=== PATIENT | male | born 1995 | race African-American/Black ===

== ENCOUNTER 2020-11-28 09:52 | Emergency (ER) | payer OTHER ==
[~2020-11-28] VITALS: Ht 193 cm; Wt 74.5 kg
[2020-11-28 13:02] LABS: BASO % 0.8 % (0.0-1.0); EOS # 0.1 10^3/uL (0.0-0.5); EOS % 2.3 % (0.0-3.0); HEMATOCRIT 42.7 % (42.0-52.0); HEMOGLOBIN 14.6 g/dl (13.5-17.5); LYMPH # 2.1 10^3/uL (1.5-5.0); LYMPH % 39.3 % (24.0-44.0); MEAN CORPUSCULAR HEMOGLOBIN 31.9 pg (27.0-33.0); MEAN CORPUSCULAR HGB CONC 34.2 g/dl (32.0-36.5); MEAN CORPUSCULAR VOLUME 93.2 fl (80.0-96.0); MONO # 0.4 10^3/uL (0.0-0.8); MONO % 7.6 % (2.0-8.0); NEUTROPHILS # 2.6 10^3/uL (1.5-8.5); NEUTROPHILS % 49.8 % (36.0-66.0); PLATELET COUNT, AUTOMATED 240 10^3/uL (150-450); RED BLOOD COUNT 4.58 10^6/uL (4.30-6.10); WHITE BLOOD COUNT 5.3 10^3/uL (4.0-10.0)
--- NOTE | 2020-11-28 13:02 | REP ---
INDICATION: right flank pain. COMPARISON: None. TECHNIQUE: Real-time sonographic evaluation of the kidneys is performed. FINDINGS: Renal cortical echogenicity pattern is normal bilaterally and contours are smooth. There is no evidence of hydronephrosis, cyst, mass, or calculus in either kidney. The right kidney measures 10.2 x 5.0 x 3.9 cm. Left renal dimensions are 10.0 x 4.9 x 4.5 cm. The urinary bladder is not well distended and not well evaluated. Ureteral jets could not be visualized with Doppler color evaluation. IMPRESSION: Negative renal ultrasound. <Electronically signed by Flavio Olvera > 11/28/20 [id number]
[2020-11-28 13:31] LABS: ALBUMIN 4.3 GM/DL (3.2-5.2); ALT/SGPT 28 U/L (12-78); BILIRUBIN,DIRECT 0.2 MG/DL (0.0-0.2); BILIRUBIN,TOTAL 0.8 MG/DL (0.2-1.0); BLOOD UREA NITROGEN 12 MG/DL (7-18); CALCIUM LEVEL 9.3 MG/DL (8.5-10.1); CARBON DIOXIDE LEVEL 32 MEQ/L (21-32); CHLORIDE LEVEL 104 MEQ/L (98-107); CREATININE FOR GFR 1.08 MG/DL (0.70-1.30); GLOMERULAR FILTRATION RATE > 60.0 (>60); GLUCOSE, FASTING 88 MG/DL (70-100); LIPASE 60 U/L (73-393); POTASSIUM SERUM 4.4 MEQ/L (3.5-5.1); SODIUM LEVEL 139 MEQ/L (136-145); TOTAL PROTEIN 7.9 GM/DL (6.4-8.2)
[2020-11-28] MEDS ORDERED: NAPR-837 PO (13:45)
[2020-11-28] MEDS ORDERED: CYCL-707 PO (13:45)
[2020-11-28 13:59] VITALS: BP 130/72
== END 2020-11-28 14:05 | disposition home or self-care (01) ==
LOC: M ED 09:52
DX: S39.012A Strain of muscle, fascia and tendon of lower back, initial encounter (principal); X50.9XXA Other and unspecified overexertion or strenuous movements or postures, initial encounter; R10.9 Unspecified abdominal pain; Y92.9 Unspecified place or not applicable; Y93.9 Activity, unspecified; Y99.9 Unspecified external cause status; Z79.899 Other long term (current) drug therapy

== ENCOUNTER 2021-01-22 21:14 | Emergency (ER) | payer OTHER ==
[~2021-01-22] VITALS: Ht 190.5 cm; Wt 73.0 kg
[~2021-01-22 21:14] MED LIST: CYCL-707 PO; NAPR-837 PO
--- OUTSIDE RECORDS SUMMARY | 2021-01-22 21:20 | CCD ---
Author [facility] Address Unknown Phone Unavailable Support Name Relationship Address Phone [facility] Next Of Kin [address] [place] [address] Unavailable Re-disclosure Warning The records that you are about to access may contain information from federally-assisted alcohol or drug abuse programs. If such information is present, then the following federally mandated warning applies: This information has been disclosed to you from records protected by federal confidentiality rules (42 CFR part 2). The federal rules prohibit you from making any further disclosure of this information unless further disclosure is expressly permitted by the written consent of the person to whom it pertains or as otherwise permitted by 42 CFR part 2. A general authorization for the release of medical or other information is NOT sufficient for this purpose. The Federal rules restrict any use of the information to criminally investigate or prosecute any alcohol or drug abuse patient.The records that you are about to access may contain highly sensitive health information, the redisclosure of which is protected by Article 27-F of the [facility] Public Health law. If you continue you may have access to information: Regarding HIV / AIDS; Provided by facilities licensed or operated by the [facility] Office of Mental Health; or Provided by the [facility] Office for People With Developmental Disabilities. If such information is present, then the following [facility] mandated warning applies: This information has been disclosed to you from confidential records which are protected by state law. State law prohibits you from making any further disclosure of this information without the specific written consent of the person to whom it pertains, or as otherwise permitted by law. Any unauthorized further disclosure in violation of state law may result in a fine or [place] [facility] sentence or both. A general authorization for the release of medical or other information is NOT sufficient authorization for further disc losure. Medications No Information Insurance Providers Payer name Policy type / Coverage type Policy ID Covered alliance party ID Covered alliance party's relationship to llanes Policy [employer] Plan [facility] [employer] [id number] Problems, Conditions, and Diagnoses No Information Surgeries/Procedures No Information Results No Information Social History No Information
--- OUTSIDE RECORDS SUMMARY | 2021-01-23 00:38 | CCD ---
Author Author [facility] Address Unknown Phone Unavailable Support Name Relationship Address Phone [facility] Next Of Kin [address] [place] [address] Unavailable Re-disclosure Warning The records that you [...] is protected by Article 27-F of the [facility] Public Health law. If you continue you may have access to information: Regarding HIV / AIDS; Provided by facilities licensed or operated by the [facility] Office of Mental Health; or Provided by the [facility] Office for People With Developmental Disabilities. If such information is present, then the following [facility] mandated warning applies: This information has been [...] law may result in a fine or [facility]ci sentence or both. A general authorization for the release of medical or other information is NOT sufficient authorization for further disc losure. Medications No Information Insurance Providers Payer name Policy type / Coverage type Policy ID Covered alliance party ID Covered alliance party's relationship to llanes Policy [employer] Plan [facility] [employer] [id number] Problems, Conditions, and Diagnoses No Information Surgeries/Procedures No Information Results No Information Social History No Information
[2021-01-23] MEDS ORDERED: SKEL800T97 PO (02:26)
[2021-01-23] MEDS ORDERED: METAXALONE 800 MG TABLET PO ONE (02:30)
[2021-01-23] MEDS ORDERED: IBUPROFEN 600MG TAB PO ONE (02:30)
[2021-01-23 02:50] VITALS: BP 127/75
== END 2021-01-23 02:52 | disposition home or self-care (01) ==
LOC: M ED 21:14
DX: S39.012A Strain of muscle, fascia and tendon of lower back, initial encounter (principal); Y92.9 Unspecified place or not applicable; Y93.9 Activity, unspecified; Y99.9 Unspecified external cause status

== ENCOUNTER 2021-02-13 18:30 | Emergency (ER) | payer OTHER ==
[~2021-02-13] VITALS: Ht 193 cm; Wt 74.5 kg
[~2021-02-13 18:30] MED LIST changes: +SKEL800T97 PO
[2021-02-13 18:31] VITALS: BP 130/60
[2021-02-13] MEDS ORDERED: cefTRIAXone 500MG VIAL (J0696 PER 250MG) IM ONE (20:30)
[2021-02-13] MEDS ORDERED: LIDOCAINE 1% SDV 5ML VIAL DILUENT ONE (20:30)
[2021-02-13] MEDS ORDERED: DOXY-443 PO (20:35)
[2021-02-13 20:59] LABS: GC DNA AMPLIFICATION NEGATIVE (NEGATIVE)
== END 2021-02-13 21:08 | disposition home or self-care (01) ==
LOC: M ED 18:30
DX: N34.1 Nonspecific urethritis (principal)
CPT/HCPCS: 81001; 87491; 87591; 87661; 96372; 99282; J0696

== ENCOUNTER 2021-03-17 12:18 | Emergency (ER) | payer OTHER ==
[~2021-03-17] VITALS: Ht 193 cm; Wt 79.5 kg
[2021-03-17 12:18] VITALS: BP 123/68
[~2021-03-17 12:18] MED LIST changes: +DOXY-443 PO
[2021-03-17 14:11] LABS: GC DNA AMPLIFICATION NEGATIVE (NEGATIVE)
[2021-03-18 11:04] LABS: HEPATITIS B SURFACE ANTIBODY POSITIVE (POSITIVE); HEPATITIS B SURFACE ANTIGEN NEGATIVE (NEGATIVE); HEPATITIS C VIRUS ABY INDEX 0.1 INDEX (<0.8); HIV 1&2 SCREEN CENTAUR NEGATIVE (NEGATIVE)
== END 2021-03-17 14:58 | disposition home or self-care (01) ==
LOC: M ED 12:18
DX: R35.0 Frequency of micturition (principal)

== ENCOUNTER 2022-04-24 15:18 | Emergency (ER) | payer OTHER ==
[~2022-04-24] VITALS: Ht 193 cm; Wt 77.3 kg
[2022-04-24] MEDS ORDERED: LIDOCAINE 1% SDV 5ML VIAL DILUENT ONE (16:00)
[2022-04-24] MEDS ORDERED: DOXYCYCLINE HYCLATE 100MG TABLET PO ONE (16:00)
[2022-04-24] MEDS ORDERED: cefTRIAXone 500MG VIAL IM ONE (16:00)
[2022-04-24 16:24] VITALS: BP 120/76
[2022-04-24 17:01] LABS: HEPATITIS B SURFACE ANTIBODY POSITIVE (POSITIVE)
[2022-04-24 17:13] LABS: HEPATITIS B SURFACE ANTIGEN NEGATIVE (NEGATIVE)
[2022-04-24 17:18] LABS: GC DNA AMPLIFICATION NEGATIVE (NEGATIVE)
[2022-04-24 17:26] LABS: HIV 1&2 SCREEN CENTAUR NEGATIVE (NEGATIVE)
== END 2022-04-24 16:38 | disposition home or self-care (01) ==
LOC: M ED 15:18
DX: Z20.2 Contact with and (suspected) exposure to infections with a predominantly sexual mode of transmission (principal); A74.9 Chlamydial infection, unspecified
CPT/HCPCS: 86706; 86780; 86803; 87340; 87389; 87661; 87810; 87850; 96372; 99283; J0696

== ENCOUNTER 2022-05-03 18:02 | Emergency (ER) | payer OTHER ==
[~2022-05-03] VITALS: Ht 193 cm; Wt 72.6 kg
[2022-05-03] MEDS ORDERED: ACETAMINOPHEN 500 MG TAB PO ONE (19:35)
[2022-05-03 20:04] LABS: GC DNA AMPLIFICATION POSITIVE (NEGATIVE)
[2022-05-03 20:30] LABS: MONO REFLEX EBV COMP NEGATIVE (NEGATIVE)
[2022-05-03] MEDS ORDERED: cefTRIAXone 500MG VIAL IM ONE (21:10)
[2022-05-03] MEDS ORDERED: LIDOCAINE 1% SDV 5ML VIAL DILUENT ONE (21:10)
[2022-05-03] MEDS ORDERED: PENICILLIN V POTASSIUM 500 MG TAB PO ONE (21:10)
[2022-05-03] MEDS ORDERED: PENI500T PO (21:14)
[2022-05-03 21:16] VITALS: BP 117/70
[2022-05-03] MEDS ORDERED: BENZ1LOZ9 PO (21:17)
[2022-05-06 14:09] LABS: EBV AB TO NUCLEAR ANTIGEN >600.0 U/mL (0.0-17.9); EBV VIRAL CAPSID AG IgM <36.0 U/mL (0.0-35.9)
== END 2022-05-03 21:25 | disposition home or self-care (01) ==
LOC: M ED 18:02
DX: A54.9 Gonococcal infection, unspecified (principal); J03.90 Acute tonsillitis, unspecified; J02.9 Acute pharyngitis, unspecified
CPT/HCPCS: 81001; 86308; 86664; 86665; 87086; 87428; 87661; 87810; 87850; 87880; 96372; 99283; J0696

== ENCOUNTER 2023-04-01 06:00 | Day surgery (SDC) | payer OTHER ==
[~2023-04-01] VITALS: Ht 193 cm; Wt 71.9 kg
[~2023-04-01 06:00] MED LIST changes: +BENZ1LOZ9 PO; +CELE0.09 PO; +GABA-282 PO; +PENI500T PO; +ceFAZolin SOD 2 GM in IV 1 EA IV ONE
[2023-04-01] MEDS ORDERED: LR 1,000 ML IV SCH (06:40)
[2023-04-01] MEDS ORDERED: LIDOCAINE 2% 100MG/5ML SDV (FOR ANES.) As Ordered ONE (07:07)
[2023-04-01] MEDS ORDERED: propofoL 200 MG/20 ML VIAL As Ordered ONE (07:07)
[2023-04-01] MEDS ORDERED: ACETAMINOPHEN 1000MG 100ML IV BAG As Ordered ONE (07:08)
[2023-04-01] MEDS ORDERED: MIDAZOLAM INJ 2MG/2ML VIAL As Ordered ONE (07:08)
[2023-04-01] MEDS ORDERED: ONDANSETRON 4MG 2ML VIAL As Ordered ONE (07:08)
[2023-04-01] MEDS ORDERED: KETOROLAC 60MG 2ML VIAL As Ordered ONE (07:08)
[2023-04-01] MEDS ORDERED: fentaNYL 100 MCG/2 ML INJECTION As Ordered ONE (07:09)
[2023-04-01] MEDS ORDERED: dexmedeTOMIDine (4MCG/ML)200MCG/50ML BTL (PRECEDEX) As Ordered ONE (07:13)
[2023-04-01] MEDS ORDERED: METOCLOPRAMIDE INJ 10MG/2ML VIAL IV PRN (09:25)
[2023-04-01] MEDS ORDERED: fentaNYL 100 MCG/2 ML INJECTION IV PRN (09:25)
[2023-04-01] MEDS ORDERED: oxyCODONE 5MG TAB PO PRN (09:25)
[2023-04-01] MEDS ORDERED: ONDANSETRON 4MG 2ML VIAL IV PRN (09:25)
[2023-04-01 10:40] VITALS: BP 121/80; TEMP 98.8; O2SAT 100
== END 2023-04-01 10:49 | disposition home or self-care (01) ==
LOC: M SDC 06:00
PROVIDERS: ATTEND Student in an Organized Health Care Education/Training Program
DX: S63.011D Subluxation of distal radioulnar joint of right wrist, subsequent encounter (principal); X58.XXXD Exposure to other specified factors, subsequent encounter; M65.831 Other synovitis and tenosynovitis, right forearm
CPT/HCPCS: 25275; 76000; C1713; J0131; J0665; J1100; J1885; J2250; J2405; J3010

== ENCOUNTER 2024-05-26 21:52 | Emergency (ER) | payer OTHER ==
[~2024-05-26] VITALS: Ht 193 cm; Wt 72.0 kg
[~2024-05-26 21:52] MED LIST changes: +DOXY-441 PO; -DOXY-443 PO; +GABA-1172 PO; -GABA-282 PO; -ceFAZolin SOD 2 GM in IV 1 EA IV ONE
[2024-05-26 21:58] VITALS: BP 130/80; TEMP 97.7; O2SAT 100
== END 2024-05-26 23:59 | disposition left against medical advice (07) ==
LOC: M ED 21:52
DX: Z53.21 Procedure and treatment not carried out due to patient leaving prior to being seen by health care provider (principal)